=== PATIENT | male | born 1985 | race Caucasian/White ===

== ENCOUNTER 2018-02-07 13:10 | Emergency (ER) | payer OTHER ==
--- NOTE | 2018-02-07 14:06 | EDPHY ---
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 He explains that a piece of metal came off of the late he was using and caused the laceration is. He reports mild to moderate pain and mild bleeding that slowed with direct pressure prior to arrival. He denies any other associated symptoms or injuries. Coworkers drove him here for evaluation. ROS: Neuro: No numbness or tingling Integumentary: No other lacerations or abrasions. Musculoskeletal: No difficulty moving the affected fingers. No feeling of foreign body. 5 point ROS is otherwise negative. Past Medical/Surgical History: Immunizations up to date Physical Exam: Physical Exam Vital signs are normal. General: No acute distress Lungs: No respiratory distress. Cardiac: Brisk capillary refill is intact throughout. Pulses are 2+ and symmetric in the affected extremity. Skin: No rash or pallor. Extremities: Atraumatic normal except for left hand Left hand: Patient has a 2.5 cm full-thickness laceration of the dorsum of the 1st proximal phalanx region subcutaneous tissue evident but no deeper structures injured. Mild bleeding. No foreign bodies on direct exam. Left 3rd finger laceration is 1.7 cm in length, palmar aspect overlying the middle phalanx oriented a 90 degrees to the long axis of the finger with subcutaneous tissue exposed, mild bleeding, no foreign bodies, no deeper structures are injured on direct examination. The patient maintains 5/5 strength in flexion and extension in the affected thumb and finger Neuro: Alert with no sensorimotor deficits 2 point discrimination is maintained in both the thumb and the 3rd finger. Constitutional: Initial Vital Signs Temperature (C) 36.7 C 02/07/18 13:20 Heart Rate 110 H 02/07/18 13:20 Respiratory Rate 96 H 02/07/18 13:20 Blood Pressure 146/102 H 02/07/18 13:20 O2 Sat (%) 96 02/07/18 13:20 Allergies/Adverse Reactions: No Known Allergies Allergy (Unverified 02/07/18 13:19) Home Medications: Medication Instructions Recorded Adderall 10 MG (*) 02/07/18 MDM/Departure - MDM Procedures: Digital block: After verbal consent, using a 50 50 mix of 0.5% Marcaine 2% plain lidocaine, 27 gauge needle, chlorhexidine scrub under sterile conditions- 3 injections were administered to the base of the left thumb, 9 mL with good effect. Patient tolerated this well. There were no complications. The wound is 2.5 cm long to the left thumb described physical exam. The wound was copiously irrigated with saline. The wound was explored for foreign bodies and none were found. The wound was prepped and draped in the normal sterile fashion. The edges were reapproximated using 4 0 Prolene on a PC 3 needle -4 running sutures in 2 interrupted sutures with good hemostasis and cosmesis. The patient tolerated the procedure well. There were no complications Digital block: After verbal consent, using a 50 50 mix of 0.5% Marcaine 2% plain lidocaine, 27 gauge needle, chlorhexidine scrub under sterile conditions- 3 injections were administered to the base of the left 3rd finger, 8 mL with good effect. Patient tolerated this well. There were no complications. The wound is 1.7 cm, subcutaneous tissue evident but no deeper structures injured The wound was copiously irrigated with saline. The wound was explored for foreign bodies and none were found. The wound was prepped and draped in the normal sterile fashion. The edges were reapproximated using 4 0 Prolene, 5 interrupted sutures with good hemostasis and cosmesis. The patient tolerated the procedure well. There were no complications. ED Course/Re-evaluation: Discussion: Finger lacerations without evidence of neurovascular compromise or other complications. However, the patient understands need to return emergency department should he developed redness, discharge, or additional symptoms of concern. - Depart Disposition: Home, Routine, Self-Care Clinical Impression: Finger laceration Qualifiers: Encounter type: initial encounter Finger: unspecified finger Damage to nail status: without damage Foreign body presence: without foreign body Laterality: left Qualified Code(s): S61.219A - Laceration without foreign body of unspecified finger without damage to nail, initial encounter Condition: Good Instructions: Finger Laceration (ED) Additional Instructions: Diagnoses: 1. Left thumb laceration 2. Finger laceration Plan: Keep the wound clean and dry for the next 2 days of dressing placed. Then remove dressing clean daily with warm soapy water Call your work comp clinic to have a recheck later this week. Limited use of hand at work. Tylenol ibuprofen for pain as needed Return for suture removal in 10-12 days Return sooner if you develop redness, discharge or other concerns for infection. Referrals: Gwen Chicas MD [Primary Care Provider] - As per Instructions
[2018-02-07 15:03] VITALS: BP 159/96
== END 2018-02-07 15:04 | disposition home or self-care (01) ==
LOC: CED 13:10
PROC: 0HQGXZZ Repair Left Hand Skin, External Approach (ICD-10-PCS; principal; 2018-02-07)
DX: S61.012A Laceration without foreign body of left thumb without damage to nail, initial encounter (principal); S61.213A Laceration without foreign body of left middle finger without damage to nail, initial encounter; W26.8XXA Contact with other sharp object(s), not elsewhere classified, initial encounter; Y92.69 Other specified industrial and construction area as the place of occurrence of the external cause; Y99.0 Civilian activity done for income or pay; Y93.89 Activity, other specified